=== PATIENT | male | born 1940 | race Caucasian/White ===

== ENCOUNTER 2017-07-30 15:54 | Emergency (ER) | payer OTHER ==
[2017-07-30 16:06] VITALS: BP 176/62
--- NOTE | 2017-07-30 16:31 | EDPHY ---
H & P Time Seen by Provider: 07/30/17 16:13 HPI/ROS: CHIEF COMPLAINT: Right upper leg injury HISTORY OF PRESENT ILLNESS: 76-year-old male presents with a right upper leg injury. He was walking down steps into his garage when he missed a step. He grabbed the railing and his knee struck the car in front of him. He did not fall to the ground. He has mild knee pain and thigh pain. He is able to ambulate. He is mainly concerned about his thigh pain, as he does not know why it hurts. ROS: No numbness, weakness, bleeding, syncopal episode, other injury. Past Medical/Surgical History: Diabetes Hypertension Social History: Smoking Status: Never smoked Physical Exam: Alert and oriented, pleasant Extremities: Right lower extremity-abrasion over the knee, knee nontender, no effusion, range of motion without pain; right thigh-tender laterally, without swelling; right hip normal range of motion without pain Skin: Abrasion right the Neuro: Motor and sensory intact Vascular: Capillary refill brisk distally Constitutional: Initial Vital Signs Temperature (C) 37.0 C 07/30/17 16:01 Heart Rate 60 07/30/17 16:01 Respiratory Rate 16 07/30/17 16:01 Blood Pressure 176/62 H 07/30/17 16:01 O2 Sat (%) 96 07/30/17 16:01 O2 Delivery Mode Room Air Allergies/Adverse Reactions: Penicillins Allergy (Mild, Verified 05/14/12 19:52) Rash Home Medications: Medication Instructions Recorded Aspirin 81mg (*) 07/30/17 Finasteride 07/30/17 Metoprolol Succinate 07/30/17 Ranitidine HCl 07/30/17 SIMVASTATIN 07/30/17 Medical Decision Making - Diagnostics Imaging Results: X-ray of the right femur and knee independently reviewed by me revealed no acute fracture. ED Course/Re-evaluation: This patient presents after a mechanical fall with knee and thigh pain. X-ray reveals no evidence of fracture. Clinical presentation consistent with thigh contusion and knee abrasion. Understands that he will have more pain tomorrow. Will use ice and anti-inflammatory medication as needed. Departure - Departure Disposition: Home, Routine, Self-Care Clinical Impression: Contusion of thigh, right Qualifiers: Encounter type: initial encounter Qualified Code(s): S70.11XA - Contusion of right thigh, initial encounter Condition: Good Instructions: Contusion in Adults (ED) Referrals: Fara Rosen MD [Primary Care Provider] - As per Instructions
== END 2017-07-30 17:08 | disposition home or self-care (01) ==
DX: S70.11XA Contusion of right thigh, initial encounter (principal); E11.9 Type 2 diabetes mellitus without complications; I10 Essential (primary) hypertension; Z79.82 Long term (current) use of aspirin; W10.8XXA Fall (on) (from) other stairs and steps, initial encounter; Y99.8 Other external cause status; Y93.01 Activity, walking, marching and hiking

== ENCOUNTER → 2018-03-20 | Outpatient (CLI) | payer OTHER | LOC: FIMAGING 10:03 | PROVIDERS: ATTEND Family Medicine | DX: R06.02 Shortness of breath (principal); I25.10 Atherosclerotic heart disease of native coronary artery without angina pectoris; Z95.5 Presence of coronary angioplasty implant and graft ==